=== PATIENT | male | born 1960 | race Caucasian/White ===

== ENCOUNTER 2018-03-09 09:31 | Day surgery (SDC) | payer BC, OTHER ==
[2018-03-09] MEDS ORDERED: ceFAZolin 2 GM in Premix Bag 1 BAG IV ONE (11:24)
--- NOTE | 2018-03-09 11:26 | PCM.HP ---
H&P History of Present Illness - General Date of Service: 03/09/18 Admit Problem/Dx: RIGHT FOREARM INJURY WITH FOREIGN BODY Source of Information: Patient History Limitations: Reports: No Limitations - History of Present Illness Initial Comments - Free Text/Narative: 57 yo male, was working with machinery at home when something broke off and flew into his RIGHT forearm. An embedded foreign body was identified on X-ray, which was obtained at [facility]. Attempts at local wound exploration under local anesthesia by the patient's primary care physician failed to remove the foreign body, so the patient was transferred here to the ER at [facility]. The patient denies any pain. Last meal was last night (over 12 hours ago). - Related Data Allergies/Adverse Reactions: Allergies Allergy/AdvReac Type Severity Reaction Status Date / Time No Known Allergies Allergy Verified 03/09/18 09:40 Home Medications: Home Meds ceFAZolin [Ancef] 2 gm IV Q8H 1 Days #1 bag 03/09/18 [Rx] Past Medical History - Past Health History Medical/Surgical History: Denies Medical/Surgical History - Past Surgical History GI Surgical History: Reports: Hernia, Inguinal Social & Family History - Tobacco Use Smoking Status *Q: Current Every Day Smoker Years of Tobacco use: 40 Packs/Tins Daily: 0.5 - Caffeine Use Caffeine Use: Reports: None - Recreational Drug Use Recreational Drug Use: No - Living Situation & Occupation Living situation: Reports: , Other (3 children (one still lives at home with him)) H&P Review of Systems - Review of Systems: Review Of Systems: See Below General: Reports: No Symptoms HEENT: Reports: No Symptoms Pulmonary: Reports: No Symptoms Cardiovascular: Reports: No Symptoms Gastrointestinal: Reports: No Symptoms Neurological: Reports: No Symptoms Exam - Exam Exam: See Below - Vital Signs Vital Signs: Last Vital Signs Temp 36.3 C 03/09/18 09:37 Pulse 81 03/09/18 09:37 Resp 16 03/09/18 09:37 BP 143/99 H 03/09/18 09:37 Pulse Ox 98 03/09/18 09:37 Weight: 77.111 kg - Exam General: Alert, Oriented, Cooperative Lungs: Clear to Auscultation Cardiovascular: Regular Rate, Regular Rhythm, Normal S1, Normal S2 Skin: Wound (RIGHT MID-FOREARM 2 CM LACERATION. NO PALPABLE FOREIGN BODY. NONTENDER.) Neuro Extensive - Mental Status: Alert, Normal Mood/Affect Neuro Extensive - Motor, Sensory, Reflexes: No: Motor/Sensory Deficits ( SENSATION INTACT TO LIGHT TOUCH BILATERAL ULN/RAD/MED. MOTOR 5/5 BILAT ULN/RAD/ MED.) Problem List Initiated/Reviewed/Updated: Yes Orders Last 24hrs: Active Orders 24 hr Category Date Time Status Forearm 2V Rt [CR] Stat Exams 03/09/18 11:04 Taken ceFAZolin [Ancef] 2 gm Med 03/09/18 11:24 Ordered Premix Bag 1 bag IV ONETIME Medication Orders Cefazolin Sodium/Dextrose 2 gm (/ Premix) 50 mls @ 100 mls/hr IV ONETIME ONE Stop: 03/09/18 11:53 Assessment/Plan Comment:: 57 yo male, h/o chronic tobacco use, presents with a RIGHT forearm laceration and a radio-opaque foreign body embedded in the wound. - Recommend RIGHT forearm wound exploration, removal of foreign body, and wound closure. - Indications, risks, and benefits were discussed with the patient in detail. Risks include bleeding, infection, damage to surrounding structures, and need for additional procedures. - Plan to perform the surgery in the main OR. - Ancef electric motors salesperson to the OR. - Patient was counseled on tobacco cessation. Darwin Suggs M.D., F.A.C.S. General Surgery Pager: [phone]
[2018-03-09] MEDS ORDERED: Bupivacaine 0.5% 30 ML SDV ONE (11:48)
[2018-03-09] MEDS ORDERED: Lidocaine 1% with EPINEPHrine 1:100,000 20 ML MDV ONE (11:48)
[2018-03-09] MEDS ORDERED: Bacitracin Oint 15 GM Tube ONE (12:23)
--- NOTE | 2018-03-09 12:42 | PCM.OPNOTE ---
- General Post-Op/Procedure Note Date of Surgery/Procedure: 03/09/18 Operative Procedure(s): RIGHT forearm wound exploration, removal of RIGHT forearm foreign body, RIGHT forearm wound washout, and closure of RIGHT forearm wound. Findings: 5 mm metallic foreign body removed from the RIGHT forearm subcutaneous space. Ultrasound assistance used to locate the foreign body. The wound had to be extended an additional 2 cm in order to remove the foreign body. Pre Op Diagnosis: RIGHT forearm wound and embedded radio-opaque foreign body Post-Op Diagnosis: RIGHT forearm wound and embedded radio-opaque foreign body Anesthesia Technique: Local Primary Surgeon: Darwin Suggs Pathology: RIGHT forearm foreign body EBL in mLs: 2 Complications: None Condition: Good Free Text/Narrative:: Indications for surgery: The patient is a 57 yo male, who presents with a RIGHT forearm wound with an embedded 5 mm foreign body. He was consented for RIGHT forearm wound exploration and removal of the foreign body. Indications, risks, and benefits were discussed with the patient in detail. Description of procedure: After surgical consent was verified, the patient was brought to the main OR. Ancef 2 gm IV was administered as a perioperative antibiotic. A surgical time- out was performed to verify proper patient, proper site, and proper procedure. Local anesthetic (1% lidocaine with epinephrine and 0.5% Marcaine without) was injected into the subcutaneous space around the 2 cm RIGHT forearm wound, which was located along the mid-forearm at the palmar/ulnar aspect. Initial wound exploration revealed no evidence of a foreign body. An ultrasound probe was then used to identify the foreign body. This identified the foreign body to be located about 2 cm proximal to the edge of the wound. The wound was then extended an additional 2 cm proximal. A 5 mm metallic foreign body was found in the subcutaneous tissue and was successfully removed. No other foreign bodies were identified. The wound was irrigated with saline. Additional local anesthetic was injected at the site ( total used was 10 cc throughout the case). The skin was reapproximated with interrupted 3-0 Nylon sutures. Bacitracin was placed over the wound closure, which was covered with nonadherent dressing and Tegaderm tape. The patient tolerated the procedure well and was transported to the PACU in stable condition. At the end of the case, all needle, instrument, and gauze counts were correct. I was presented and scrubbed for the entirety of the case. Darwin Suggs M.D., F.A.C.S. General Surgery Pager: [phone]
--- NOTE | 2018-03-09 12:59 | CR ---
Right forearm: Two views of the right forearm were obtained. Comparison: No previous study. Radiopacity is projected within the soft tissues measuring 3.6 mm located within the proximal mid forearm along the ulnar side of the forearm. No fracture or other bony abnormality is appreciated. Impression: 1. Metallic foreign body projected within the soft tissues as noted above. 2. No acute bony abnormality is identified. Diagnostic code #3
--- NOTE | 2018-03-09 13:01 | PCM.SN ---
- Free Text/Narrative Note: Post-op wound care instructions were given to the patient prior to discharge. He will F/U in about 10 days for a wound check and removal of skin sutures. Darwin Suggs M.D., F.A.C.S. General Surgery Pager; [phone]
== END 2018-03-09 12:54 | disposition home or self-care (01) ==
LOC: JD.ED 09:31 → JD.SDS 11:28
PROVIDERS: ATTEND Student in an Organized Health Care Education/Training Program
DX: S51.841A Puncture wound with foreign body of right forearm, initial encounter (principal); F17.200 Nicotine dependence, unspecified, uncomplicated; W31.9XXA Contact with unspecified machinery, initial encounter
CPT/HCPCS: 20103; 73090; 99284; A9270; J0690